=== PATIENT | female | born 1975 | race Caucasian/White ===

== ENCOUNTER → 2020-12-14 | Outpatient (CLI) | payer OTHER ==
[~2020-12-14] MED LIST: AZIT250 PO; ESOM20 PO; KETO10 PO; MECL12.5 PO; OXYACE5T PO; PROM25 PO; SERT50 PO; TAMS.4ER PO; TYLENOL COLD
[2020-12-14 09:51] LABS: BASOPHILS ABSOLUTE AUTO 0.06 K/mm3 (0.00-0.23); BASOPHILS PERCENT AUTO 1 % (0-2); EOSINOPHILS ABSOLUTE AUTO 0.07 K/mm3 (0.00-0.68); EOSINOPHILS PERCENT AUTO 1 % (0-6); Hematocrit 39.3 % (33.0-51.0); Hemoglobin 12.9 g/dL (11.5-16.0); IMMATURE GRAN ABSOLUTE AUTO 0.03 K/mm3 (0.00-0.10); IMMATURE GRAN PERCENT AUTO 0 % (0-1); LYMPHOCYTES ABSOLUTE AUTO 1.53 K/mm3 (0.84-5.20); LYMPHOCYTES PERCENT AUTO 17 % (21-46); MONOCYTES ABSOLUTE AUTO 0.61 K/mm3 (0.16-1.47); MONOCYTES PERCENT AUTO 7 % (4-13); Mean Corpuscular HGB 27.4 pg (26.0-34.0); Mean Corpuscular HGB Conc 32.8 g/dL (31.5-36.5); Mean Corpuscular Volume 83 fL (80-100); Mean Platelet Volume 9.6 fL (9.1-12.4); NEUTROPHILS ABSOLUTE AUTO 6.57 K/mm3 (1.96-9.15); NEUTROPHILS PERCENT AUTO 74 % (41-73); Platelet Count 296 K/mm3 (150-400); RDW Coefficient Variation 13.4 % (11.7-14.2); RDW Standard Deviation 40.8 fL (35.1-46.3); Red Blood Cell Count 4.71 M/mm3 (3.80-5.20); White Blood Cell Count 8.87 K/mm3 (4.00-11.30)
[2020-12-14 10:00] LABS: Alanine Aminotransfer (ALT/SGP 14 U/L (12-78); Albumin, Blood 4.3 g/dL (3.4-5.0); Albumin/Globulin Ratio 1.1 (0.8-1.8); Alk Phos 68 U/L (40-126); Anion Gap 11 mmol/L (6-16); Aspartate Aminotrans (AST/SGOT 8 U/L (12-37); Bilirubin, Total 0.6 mg/dL (0.1-1.0); Blood Urea Nitrogen 19 mg/dL (8-24); Bun/Creatinine Ratio 21.1 (12.0-20.0); CO2, Blood 27 mmol/L (21-32); Calcium, Blood 9.1 mg/dL (8.5-10.1); Chloride, Blood 103 mmol/L (98-108); Globulin, Blood 3.8 g/dL (2.2-4.0); Glomerular Filtration Rate >60 (60-); Glucose, Blood 103 mg/dL (70-99); Potassium, Blood 3.9 mmol/L (3.5-5.5); Sodium, Blood 141 mmol/L (136-145); Total Protein, Blood 8.1 g/dL (6.4-8.2)
== END | disposition home or self-care (01) ==
LOC: LAB 09:46 → LAB SHORT 09:46
PROVIDERS: Physician Assistant Medical
DX: R11.2 Nausea with vomiting, unspecified (principal)
CPT/HCPCS: 80053; 85025

== ENCOUNTER 2022-06-20 09:49 | Day surgery (SDC) | payer OTHER ==
[~2022-06-20] VITALS: Ht 177.8 cm; Wt 93.7 kg
[~2022-06-20 09:49] MED LIST changes: +Flomax0.4 MG PO; +IBUP600 PO; +ONDA4ODT MM; +Roxicodone5 MG PO
[2022-06-20] MEDS ORDERED: ZYRTEC10 M2 PO (10:53)
--- NOTE | 2022-06-20 11:32 | NUR ---
06/20/22 1132 Summer Boo CALL LIGHT WITHIN REACH.
[2022-06-20 13:07] VITALS: BP 105/76
--- NOTE | 2022-06-20 13:53 | NUR ---
06/20/22 1353 Nicholas Ham IV REMOVED. SITE WNL.
== END 2022-06-20 13:45 | disposition home or self-care (01) ==
LOC: ORSCSDS 09:49
PROVIDERS: Orthopaedic Surgery
PROC: 01N50ZZ Release Median Nerve, Open Approach (ICD-10-PCS; principal; 2022-06-20 11:15)
DX: G56.03 Carpal tunnel syndrome, bilateral upper limbs (principal); K21.9 Gastro-esophageal reflux disease without esophagitis; F41.8 Other specified anxiety disorders; Z79.899 Other long term (current) drug therapy
CPT/HCPCS: J0690; J2250; J2405; J2704; J3010; J7120

== ENCOUNTER 2023-08-05 18:51 | Emergency (ER) | payer OTHER ==
[~2023-08-05] VITALS: Ht 177.8 cm; Wt 100.7 kg
[~2023-08-05 18:51] MED LIST changes: +ZYRTEC10 M2 PO
[2023-08-05 18:54] VITALS: BP 146/106
[2023-08-05] MEDS ORDERED: Ketorolac Tromethamine 10 MG Tab PO ONE (20:20)
== END 2023-08-05 21:20 | disposition home or self-care (01) ==
LOC: ER 18:51
DX: S06.0X9A Concussion with loss of consciousness of unspecified duration, initial encounter (principal); S13.4XXA Sprain of ligaments of cervical spine, initial encounter; S40.012A Contusion of left shoulder, initial encounter; S40.021A Contusion of right upper arm, initial encounter; V43.53XA Car driver injured in collision with pick-up truck in traffic accident, initial encounter; Z79.899 Other long term (current) drug therapy
CPT/HCPCS: 72040; 73030; 73130; 99283-25; A9270

== ENCOUNTER → 2023-12-06 | Outpatient (CLI) | payer OTHER ==
[2023-12-06 19:03] LABS: Adenovirus F 40/41 Not Detected (NOT DETECT); Astrovirus Not Detected (NOT DETECT); Campylobacter Sp Not Detected (NOT DETECT); Cryptosporidium Not Detected (NOT DETECT); Cyclospora Cayetanensis Not Detected (NOT DETECT); E. Coli O157 Not Detected (NOT DETECT); Entamoeba Histolytica Not Detected (NOT DETECT); Enteroaggregative E. coli-EAEC Not Detected (NOT DETECT); Enteropathogenic E. coli-EPEC Not Detected (NOT DETECT); Enterotoxigenic E. coli-ETEC Not Detected (NOT DETECT); Giardia Lamblia Not Detected (NOT DETECT); Norovirus GI/GII Not Detected (NOT DETECT); Plesiomonas Shigelloides Not Detected (NOT DETECT); Rotavirus A Not Detected (NOT DETECT); Salmonella Sp Not Detected (NOT DETECT); Sapovirus Not Detected (NOT DETECT); Shiga Toxin-prod E. coli-STEC Not Detected (NOT DETECT); Shigella/Enteroin E. coli-EIEC Not Detected (NOT DETECT); Vibrio Cholerae Not Detected (NOT DETECT); Vibrio Sp Not Detected (NOT DETECT); Yersinia Enterocolitica Not Detected (NOT DETECT)
[2023-12-09 10:50] LABS: CALPROTECTIN,FECAL 45 ug/g (<=49)
[2023-12-09 11:25] LABS: PANCREATIC ELASTASE,FECAL 552 ug/g (>=100)
== END ==
LOC: LAB SHORT 15:08 → LAB 15:08
PROVIDERS: Family Medicine
DX: K52.9 Noninfective gastroenteritis and colitis, unspecified (principal)
CPT/HCPCS: 82653; 83993; 87338; 87507

== ENCOUNTER 2024-03-11 10:38 | Day surgery (SDC) | payer OTHER ==
[~2024-03-11] VITALS: Ht 177.8 cm; Wt 98.0 kg
[~2024-03-11 10:38] MED LIST changes: +NS 500 ML IV ONE
[2024-03-11] MEDS ORDERED: CeFAZolin Sodium 2,000 MG VIAL ONE (10:49)
[2024-03-11] MEDS ORDERED: NS 500 ML IV ONE (11:18)
[2024-03-11] MEDS ORDERED: NS 50 ML IV ONE (11:48)
--- NOTE | 2024-03-11 12:07 | NUR ---
03/11/24 1207 Martha Peters T.O. DONE WITH DR. CAPUTO. INJECTION WITH 10ML LOCAL AT 1146. REPORT GIVEN TO RACHELLE BEST. TORIBIO HANGING ON BED & WILL START BY OR STAFF.
--- NOTE | 2024-03-11 12:19 | NUR ---
03/11/24 1219 Kaylah Tipton ANTIBIOITICS STARTED AT 1205
[2024-03-11 12:58] VITALS: BP 114/74
--- NOTE | 2024-03-11 13:16 | NUR ---
03/11/24 1316 NATHALY VINCENT, RN ASSISTED WITH DISCHARGE INSTRUCTIONS AND PATIENT CARE
== END 2024-03-11 13:04 | disposition home or self-care (01) ==
LOC: ORSCSDS 10:38
PROVIDERS: Orthopaedic Surgery
PROC: 01N50ZZ Release Median Nerve, Open Approach (ICD-10-PCS; principal; 2024-03-11 12:45)
DX: G56.01 Carpal tunnel syndrome, right upper limb (principal); F32.A Depression, unspecified; F41.9 Anxiety disorder, unspecified; Z79.899 Other long term (current) drug therapy
CPT/HCPCS: J0690; J7040